=== PATIENT | female | born 1995 | race Caucasian/White ===

== ENCOUNTER 2024-02-25 01:58 | Emergency (ER) | payer SELFPAY ==
[2024-02-25] VITALS (7 sets, daily range): BP systolic 120–147; BP diastolic 68–101; BMI 22.3
[2024-02-25 02:58] LABS: COVID-19 Antigen Negative (Negative)
--- NOTE | 2024-02-25 03:49 | ED.GENMED ---
History of Present Illness
<Kelley (Lenka) TOYIN Abel - Last Filed: 02/25/24 04:17>
General
Chief Complaint: Breathing Problem
Source: patient
Exam Limitations: none
Time Seen by Provider: 02/25/24 03:35
Nursing documentation reviewed up to this point in time: agreed with
History of Present Illness
History of Present Illness:
Pt is a 28 yo female with PMHx of asthma managed with ProAir inhaler who presents to the ED with concerns over 'chest rattling, wheezing, and feeling like someone is standing on my chest'. Since the beginning of spring, pt has developed a chronic
dry cough that is intermittently productive to the point of spitting out phlegm, worse in the morning. Her chest has felt tight for these past months, but she has not had any asthma changes made by any doctor since symptoms onset, despite seeing PCP
months ago. 2d ago she used her nebulizer without relief, and yesterday at 1999 PM she used 2 puffs of her ProAir inhaler without relief. Alan she endorses a 'culmination' of all her symptoms: her cough has become raspy causing her to have a
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 She
endorses recent stuffiness and facial sinus pressure. Denies post-nasal drip, rhinorrhea, fever, chills, difficulty or painful swallowing, abdominal or back pain, N/V/D/C, urinary symptoms. No known sick contacts.
She notes that she sleeps poorly, struggles to fall asleep and will often wake up coughing for the past few months.
She called her PCP emergency line alan who recommended she come in for evaluation of asthma status and to r/o PNA.
She notes that she does 'poorly' with environmental changes and recently moved from [place] to [place], and then from [place] back to [place] in early January. Her symptoms of cough, phlegm production, and chest tightness are worse when in [place].
She has a hx of being evaluated for allergies by ENT as a child.
Past History
<TOYIN Steele (Lenka) - Last Filed: 02/25/24 04:17>
Past History
ED Past Medical History: Asthma
ED Past Surgical History: Other (wisdom tooth extraction)
Social History
Tobacco: Non-smoker
Alcohol: None
Personal: Single
Living: with family
Phy Exam
<TOYIN Steele (Lenka) - Last Filed: 02/25/24 04:17>
General Physical Exam
General Presentation: well appearing and no apparent distress (irritative dry cough every few seconds)
General age: appears stated age
General Skin: warm, dry and flushed (mild flushing to B/L cheeks)
General Habitus: normal
General Mental: alert
General Hydration: appears well hydrated
ENT Exam
ENT Exam: EOMI and pharynx normal (+1 tonsils B/L, no exudate or erythema)
Additional ENT: no nasal polyps, minimally inflamed nasal turbinate L side
Eye Exam
Eye Exam: PERRL and conjunctiva normal
Cardiovascular Exam
Cardiovascular Exam: regular rate/rhythm, no edema, no gallop, no murmur and normal peripheral pulses
Pulmonary Exam
Pulmonary Exam: lungs clear (clear to auscultation in all lung jarrell), no respiratory distress, no rales, no rhonchi, no stridor and no wheezing
Cough: non productive cough
Gastrointestinal Exam
Gastrointestinal Exam: soft and non distended
Neurological Exam
Neurological Exam: alert, oriented x3 and speech normal
Musculoskeletal Exam
Musculoskeletal Exam: full ROM
Skin Exam
Skin Exam: normal color and warm/dry
Course
<TOYIN Steele (Lenka) - Last Filed: 02/25/24 04:17>
Orders/Labs/Results
Orders:
Orders
02/25/24 02:17
Electrocardiogram (*1) Urgent
Reason for Study: Other
Other Reason for Exam: Respiratory Distress
EKG- Treatment ONCE
CR Chest - 2 Views Urgent
Comment:
Reason For Exam: respiratory distress
02/25/24 02:25
COVID-19 Antigen Urgent
Source: Nasal Swab
02/25/24 04:36
Dexamethasone Pf [Decadron] 10 mg PO NOW STA
Ipratropium/Albuterol Sulfate [Duoneb] 3 ml INH R NOW ONE
02/25/24 04:37
Pantoprazole [Protonix] 40 mg PO NOW STA
Vital Signs
Initial and Last Documented VS:
Initial Vital Signs
Temp Pulse Resp BP Pulse Ox
97.7 F 71 20 138/89 97
02/25/24 02:10 02/25/24 02:10 02/25/24 02:10 02/25/24 02:10 02/25/24 02:10
Last Documented Vital Signs
Temp Pulse Resp BP Pulse Ox
97.7 F 76 16 120/70 99
02/25/24 02:10 02/25/24 03:51 02/25/24 03:51 02/25/24 03:51 02/25/24 03:51
<Mike Osman DO - Last Filed: 02/25/24 05:05>
Orders/Labs/Results
Orders:
Orders
02/25/24 02:17
Electrocardiogram (*1) Urgent
Reason for Study: Other
Other Reason for Exam: Respiratory Distress
EKG- Treatment ONCE
CR Chest - 2 Views Urgent
Comment:
Reason For Exam: respiratory distress
02/25/24 02:25
COVID-19 Antigen Urgent
Source: Nasal Swab
02/25/24 04:36
Dexamethasone Pf [Decadron] 10 mg PO NOW STA
Ipratropium/Albuterol Sulfate [Duoneb] 3 ml INH R NOW ONE
02/25/24 04:37
Pantoprazole [Protonix] 40 mg PO NOW STA
Vital Signs
Initial and Last Documented VS:
Initial Vital Signs
Temp Pulse Resp BP Pulse Ox
97.7 F 71 20 138/89 97
02/25/24 02:10 02/25/24 02:10 02/25/24 02:10 02/25/24 02:10 02/25/24 02:10
Last Documented Vital Signs
Temp Pulse Resp BP Pulse Ox
97.7 F 76 16 120/70 99
02/25/24 02:10 02/25/24 03:51 02/25/24 03:51 02/25/24 03:51 02/25/24 03:51
<TOYIN Steele (Lenka) - Last Filed: 02/25/24 04:17>
MDM/Problems Addressed
Differential Diagnosis Includes:
DDx: laryngopharyngeal reflux (LPR) vs GERD vs asthma-exacerbation vs PNA vs bronchitis
Pt with dysphagia,
Chronic conditions affecting care: Asthma
<TOYIN Steele (Lenka) - Last Filed: 02/25/24 04:17>
*Critical Care Note
Total Time (30-74mins, 75-104mins- exclusive of procedures): Not Applicable
ED Attending Note
<TOYIN Steele (Lenka) - Last Filed: 02/25/24 04:17>
-
Portions of this chart may have been created with voice recognition software.� Occasional wrong word or��sound alike� substitutions may have occurred due to the inherent limitations of voice recognition software.
<Mike Osman, DO - Last Filed: 02/25/24 05:05>
ED Attending Note
Patient seen and examined by attending physician: Yes
I performed the substantive portion of visit, reviewed & personally made and approve the management plan that is documented in note by myself or SELVIN.: Yes
ED Attending Note:
Pleasant 28-year-old female presents with nonproductive cough with chest rattling that is been present for the last month. She states that she has had intermittent difficulties since spring. She has had a chronic dry cough and had intermittent
chest tightness. She has been followed by her primary care provider. She has an albuterol nebulizer and rescue inhaler. She states that these slightly helped her symptoms. Tonight her cough became raspy and caused her to have a hoarse voice.
She does state that when lying flat her symptoms are worse. 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 I have reviewed and agree with the history and treatment plan presented. On my independent physical exam, patient is awake, alert,
and oriented x3, minimal acute distress. Lungs are clear to auscultation bilaterally without wheezes rales or rhonchi. Abdomen is soft nontender. Heart is regular rate and rhythm.
EKG shows normal sinus rhythm rate of 69 with normal intervals, normal axis. No evidence of acute ischemia present. No old EKG is available for comparison.
Discharge Plan
Departure
Patient Disposition: Home (Routine Discharge)
Date of Disposition: 02/25/24
Time of Disposition: 04:58
Patient with high blood pressure during this ER visit?: Yes
Condition: Good
Discharge Problem:
Gastroesophageal reflux disease, Cough
Instructions: Shortness of Breath (Dyspnea) (DC), Acid reflux and GERD in adults, BLOOD PRESSURE
Prescriptions:
New
albuterol sulfate 2.5 mg /3 mL (0.083 %) solution for nebulization
2.5 mg inhalation QID PRN (Reason: shortness of breath or wheezing) Qty: 90 0RF
pantoprazole 40 mg tablet,delayed release (/EC)
40 mg PO DAILY Qty: 30 0RF
No Action
albuterol sulfate [ProAir HFA] 90 mcg/actuation Hfa Aerosol Inhaler
2 puff INHALATION .Q 4 PRN (Reason: sob)
Patient Comments:
q 4 to 6 hr
albuterol sulfate
1 dose inhalation .Q 4 TO 6 HR PRN (Reason: sob)
Referrals:
Davide Burgos MD [Active] -
Alex Pierre, DO [Family Provider] -
Theresa Ngo MD [Active] -
Activity Restrictions/Additional Instructions:
It was a pleasure meeting you and taking part in your care. We hope for your continued healing and wellness.
Please read discharge instructions in their entirety. However, they are for general education and may not describe your exact diagnosis at discharge. Information on your ER visit and medical conditions were discussed with you along with appropriate
follow up information...
If indicated, please take your medications as instructed and indicated on discharge paperwork.
Please schedule a follow up appointment as directed. Call to schedule an appointment
Please return to the emergency department with ANY change in, persisting, or worsening of symptoms. If any of your symptoms do not improve, or persist, or become more severe within 6-12 hours, please return to the emergency department for further
care.
Please return to the emergency department if you develop a headache, neck pain/stiffness, fever greater than 100.4F, chest pain, shortness of breath, persistent nausea, vomiting, slurred speech, difficulty walking, numbness/tingling, weakness, signs
of infection or any other symptoms that are worrisome to you.
If you have any questions or concerns please do not hesitate to call the Hospital at or E-mail me directly at [email or web address]
Interventions
Interventions:
*Risk Screen - Suicide Last Done: 02/25/24 02:10
*General Assessment Last Done: 02/25/24 02:10
*Neglect/Abuse Screening Last Done: 02/25/24 02:10
ED- Fall Risk Assessment Last Done: 02/25/24 02:10
*ED COVID-19 Vaccine History Last Done: 02/25/24 02:10
ED- Cardiac Assessment Last Done: 02/25/24 03:39
ED- Pulmonary Assessment Last Done: 02/25/24 03:39
Discharge Date and Time
Print Language: VIETNAMESE
[2024-02-25] MEDS: DECADRON 10 MG PO (04:58)
[2024-02-25] MEDS: PROTONIX 40 MG PO (04:58)
[2024-02-25] MEDS: DUONEB 3 ML INH (05:02)
== END 2024-02-25 05:45 | disposition home or self-care (01) ==
LOC: EMR 01:58
PROVIDERS: EMERGENCY PHYSICIAN Student in an Organized Health Care Education/Training Program; FAMILY PHYSICIAN Family Medicine
DX: R05.9 Cough, unspecified (principal); K21.9 Gastro-esophageal reflux disease without esophagitis; Z11.52 Encounter for screening for COVID-19
CPT/HCPCS: 99285; 94640; 71046; 87811; 93005

== ENCOUNTER 2024-03-10 21:17 | Emergency (ER) | payer SELFPAY ==
[2024-03-10 21:19] VITALS: BP 151/94
[2024-03-10 22:21] LABS: Urine Albumin Negative (Neg - Trace); Urine Bilirubin Negative (Negative); Urine Character Clear (Clear); Urine Color Straw; Urine Glucose Negative (Negative); Urine Ketone Negative (Negative); Urine Leukocyte Negative (Negative); Urine Nitrite Negative (Negative); Urine Occult Blood Negative (Negative); Urine Urobilinogen Negative (Neg - 1+)
[2024-03-10 22:38] LABS: HCG, Urine Qualitative Screen Negative
[2024-03-10] MEDS: NSS 1000 IV (23:14)
[2024-03-10] MEDS: ZOFRAN 4 MG IV (23:14)
--- NOTE | 2024-03-10 23:16 | ED.GENMED ---
History of Present Illness
General
Chief Complaint: Abdominal Pain
Source: patient
Exam Limitations: none
Time Seen by Provider: 03/10/24 21:26
Nursing documentation reviewed up to this point in time: agreed with
History of Present Illness
History of Present Illness:
The patient is a 28-year-old female who reports intermittent nausea and diarrhea for 4 days. Patient denies sick contacts, however, she reports that her brother had similar symptoms few days ago. She denies fever. The patient reports that prior
to arrival, she experienced a wave of nausea and nearly passed out in a chair. She did not fully lose consciousness. She did not fall or hit her head. Patient reports a mild abdominal discomfort and nausea. She denies bloody or black stool
Past History
Past History
ED Past Medical History: Asthma
ED Past Surgical History: Other (wisdom tooth extraction)
Social History
Tobacco: Non-smoker
Alcohol: None
Drug: None
Personal: Single
Living: with family
Employment: Employed
Family History
Family History: Other
Review of Systems
Review of Systems
Allergies reviewed?: Yes
All Other Systems: ROS reviewed and negative except as documented in HPI and ROS
Constitutional: Reports no symptoms
EENT: Reports no symptoms
Respiratory: Reports no symptoms
Cardiac: Reports no symptoms
ABD/GI: Reports abdominal pain, nausea, diarrhea and anorexia
: Reports no symptoms
Skin: Reports no symptoms
Neurological: Reports no symptoms
Endocrine: Reports no symptoms
Hematologic/Lymphatic: Reports no symptoms
Psychiatric: Reports no symptoms
Phy Exam
Physical Exam
Physical Exam:
Physical Exam
General: no apparent distress, not acutely ill, well appearing
Neck: supple. no meningeal signs. normal psoterior pharynx
Heart: s1/s2 regular rate and rhythm, no murmur. equal radial pulses.
Lungs: no acute respiratory distress. clear bilaterally
Abdomen: Soft, nondistended. No localized tenderness. Normal bowel sounds
Neuro: alert and oriented. no focal neurological deficits
Skin: no rash
Psychiatric: well kept. interactive and cooperative
Extremities: no edema. no calf tenderness. negative homans. good distal pulses
Course
Orders/Labs/Results
Orders:
Orders
03/10/24 22:15
HCG, Urine Qualitative Screen Urgent
Date Specimen was Collected: 03/10/24
Time Specimen was Collected: 22:04
Urinalysis Reflex To Culture Urgent
Date Specimen was Collected: 03/10/24
Time Specimen was Collected: 22:04
03/10/24 22:25
Add On- LAB Urgent
Tests Added?: urine BHCG
03/10/24 22:26
Electrocardiogram (*1) Urgent
Reason for Study: Syncope
EKG- Treatment ONCE
0.9% Sodium Chloride 1000 ml [Nss] 1,000 ml IV BOLUS
Ondansetron Injectable [Zofran] 4 mg IV NOW STA
03/10/24 23:10
Complete Blood Count/With Diff Urgent
Comprehensive Metabolic Panel Urgent
Lipase Urgent
Abnormal Lab Results
03/10/24
23:10
Hct 35.6 L %
(37.0-47.0)
Absolute Monos (auto) 0.7 H 10^3/uL
(0.1-0.6)
Glucose 114 H mg/dl
(70-99)
03/10/24 23:10
03/10/24 23:10
Vital Signs
Initial and Last Documented VS:
Initial Vital Signs
Temp Pulse Resp BP Pulse Ox
98.6 F 103 19 151/94 98
03/10/24 21:19 03/10/24 21:19 03/10/24 21:19 03/10/24 21:19 03/10/24 21:19
Last Documented Vital Signs
Temp Pulse Resp BP Pulse Ox
98.6 F 83 14 132/79 98
03/10/24 21:19 03/11/24 00:00 03/11/24 00:00 03/11/24 00:00 03/11/24 00:00
MDM/Problems Addressed
Differential Diagnosis Includes:
Gastroenteritis, acute colitis, acute dehydration
MDM/Problems Addressed:
Patient presents with acute nausea, diarrhea and presyncopal symptoms
Chronic conditions affecting care: Asthma
Acute Exacerbation and/or Progression of Chronic Illness:
Patient is breathing comfortably with clear breath sounds and no sign of asthma exacerbation
*Pulse Oximetry
Patient hypoxic: no
*EKG
Interpreted by ED Provider?: Yes
Interpretation: normal
Comparison EKG: no changes
Rate: normal
Rhythm: sinus
[place]: normal axis
Interval: normal interval
QRS Pattern: normal QRS
Ischemia: no ischemia
*Film Technician Interpretation
Rate: normal
Interpretation: normal
Rhythm: sinus
*Critical Care Note
Total Time (30-74mins, 75-104mins- exclusive of procedures): Not Applicable
Data Reviewed
Review of Other/Old Records Reveals: Radiology Studies (Recent chest x-ray from 02/2024 was normal)
Update Note
Update Note:
11 PM patient complains of feeling slightly dizzy, as if her vision is swinging from [id number]. However, patient has a normal neurological exam. Patient likely has vertigo. Patient likely has a viral illness. Abdomen remains soft and
nontender so it is doubtful she has acute appendicitis or acute cholecystitis. Patient instructed to maintain bland diet and rest this weekend
ED Attending Note
-
Portions of this chart may have been created with voice recognition software.� Occasional wrong word or��sound alike� substitutions may have occurred due to the inherent limitations of voice recognition software.
Discharge Plan
Departure
Patient Disposition: Home (Routine Discharge)
Date of Disposition: 03/11/24
Time of Disposition: 00:21
Patient with high blood pressure during this ER visit?: Yes
Condition: Good
Covid-19: Not Applicable
Discharge Problem:
acute nausea, acute vertigo
Instructions: Onida Diet, Vertigo ED, BLOOD PRESSURE, Acute Nausea and Vomiting
Prescriptions:
New
ondansetron 4 mg tablet,disintegrating
4 mg PO Q8H PRN (Reason: nausea and vomiting) Qty: 10 0RF
meclizine 25 mg tablet
25 mg PO TID PRN (Reason: dizziness) Qty: 7 0RF
No Action
albuterol sulfate [ProAir HFA] 90 mcg/actuation Hfa Aerosol Inhaler
2 puff INHALATION .Q 4 PRN (Reason: sob)
Patient Comments:
q 4 to 6 hr
albuterol sulfate
1 dose inhalation .Q 4 TO 6 HR PRN (Reason: sob)
albuterol sulfate 2.5 mg /3 mL (0.083 %) solution for nebulization
2.5 mg inhalation QID PRN (Reason: shortness of breath or wheezing) Qty: 90 0RF
pantoprazole 40 mg tablet,delayed release (DR/EC)
40 mg PO DAILY Qty: 30 0RF
Referrals:
Alex Pierre DO [Family Provider] -
Activity Restrictions/Additional Instructions:
Take the Zofran as needed for nausea. Use the meclizine as needed for vertigo
Interventions
Interventions:
*Risk Screen - Suicide Last Done: 03/10/24 21:19
*General Assessment Last Done: 03/10/24 21:19
*Neglect/Abuse Screening Last Done: 03/10/24 21:19
ED- Fall Risk Assessment Last Done: 03/10/24 22:40
*ED COVID-19 Vaccine History Last Done: 03/10/24 22:40
[id number] Assessment Last Done: 03/10/24 22:40
Discharge Date and Time
Print Language: [place]THER[place] IRISH
[2024-03-10 23:18] LABS: % Basophils 0.9 % (0-2); % Eosinophils 2.2 % (0-6); % Immature Granulocytes 0.4 % (0-0.5); % Lymphocytes 22.1 % (20.5-51.1); % Monocytes 8.4 % (1.7-9.3); Absolute Basophils 0.1 10^3/uL (0-0.2); Absolute Eosinophils 0.2 10^3/uL (0-0.7); Absolute Lymphocytes 1.7 10^3/uL (1.2-3.4); Absolute Monocytes 0.7 10^3/uL (0.1-0.6); Absolute Neutrophils 5.1 10^3/uL (1.4-6.5); Hematocrit 35.6 % (37.0-47.0); Hemoglobin 12.7 g/dL (12.0-16.0); Mean Corp Hgb Conc. 35.7 g/dL (33.0-37.0); Mean Corpuscular Hgb 29.2 pg (27.0-31.0); Mean Corpuscular Volume 81.8 fL (81.0-99.0); Mean Platelet Volume 9.4 fL (7.4-10.4); Nucleated Red Blood Cells % 0 %; Platelet Count 316 10^3/uL (130-400); Red Blood Cell Count 4.35 10^6/uL (4.20-5.40); Red Cell Dist. Width 12.3 % (11.5-14.5); White Blood Cell Count 7.7 10^3/uL (4.8-10.8)
[2024-03-10 23:32] LABS: ALT (SGPT) 14 U/L (0-35); AST (SGOT) 25 U/L (14-36); Albumin 4.9 g/dl (3.5-5.0); Alkaline Phosphatase 74 U/L (38-126); Blood Urea Nitrogen 13 mg/dl (7-17); Calcium 9.7 mg/dl (8.4-10.2); Carbon Dioxide 28 mmol/L (22-30); Chloride 101 mmol/L (98-107); Glucose 114 mg/dl (70-99); Lipase 220 U/L (23-300); Potassium 3.9 mmol/L (3.5-5.1); Sodium 142 mmol/L (135-145); Total Bilirubin 0.3 mg/dl (0.2-1.3); Total Protein 7.6 g/dl (6.3-8.2); eGFR > 60.00
[2024-03-11] VITALS: BP 132/79
== END 2024-03-11 00:43 | disposition home or self-care (01) ==
LOC: EMR 21:17
PROVIDERS: EMERGENCY PHYSICIAN Emergency Medicine; FAMILY PHYSICIAN Family Medicine
DX: R11.0 Nausea (principal); R42 Dizziness and giddiness; R19.7 Diarrhea, unspecified; J45.909 Unspecified asthma, uncomplicated
CPT/HCPCS: 99283; 96360; 80053; 81003; 81025; 83690; 85025; 93005

== ENCOUNTER → 2024-08-22 14:27 | Outpatient (REF) | payer OTHER, SELFPAY | LOC: RAD 14:27 | PROVIDERS: ATTENDING PHYSICIAN Nurse Practitioner Family; FAMILY PHYSICIAN Family Medicine | DX: R10.9 Unspecified abdominal pain (principal) | CPT/HCPCS: 76700 ==

== ENCOUNTER → 2025-07-04 11:06 | Outpatient (REF) | payer OTHER, SELFPAY | LOC: RAD 11:06 | PROVIDERS: ATTENDING PHYSICIAN Family Medicine; FAMILY PHYSICIAN Family Medicine | DX: T14.8XXA Other injury of unspecified body region, initial encounter (principal); R20.2 Paresthesia of skin | CPT/HCPCS: 76882 ==